=== PATIENT | female | born 1985 | race Caucasian/White ===

== ENCOUNTER 2016-10-03 23:18 | Emergency (ER) | payer OTHER ==
--- NOTE | ~2016-10-03 | CR72 ---
[facility] A Service of [facility] & [facility] RADIOLOGY TEXT RESULTS PATIENT: CARLTON WEINER LOCATION: [facility] : 89 UNIT #: [id number] AGE: [address]: Juju Low MD SEX: F ORDER DR: [id number] [facility] [address] [place], [place] [address] [id number] MR#: [id number] Acc #: [id number] NAME: CARLTON WEINER. : 1985 SEX: F STUDY DATE/TIME: 10/03/2016 23:24 UNIT: [facility] ROOM: STUDY DESCRIPTION: CR Chest Single View Portable Attending Physician: Juju Low M.D. Referring Physician: Self Referral-Refer Use Only Ordering Physician: Juju Low M.D. Primary Care Physician: No Primary Care Physician MEDICAL IMAGING REPORT This report is preliminary unless electronic signature is present EXAM Portable chest. HISTORY Cough and congestion x2 days. Smoker. COMPARISON 08/07/2015 FINDINGS Portable view of the chest demonstrates moderate lung volumes, satisfactory technique. No infiltrates or effusions. Heart, mediastinum, and great vessels unremarkable. Anchors are seen in the right anterior shoulder suggesting prior labral repair. No pneumothorax. Dictated by... Amanda Adams M.D. THIS IS AN ELECTRONICALLY VERIFIED REPORT Amanda Adams M.D. at 10/04/2016 10:06 PM TAMMY/graciela TD: 10/04/2016 10:51 JOB #: [id number] MEDICAL IMAGING REPORT Page 1 of 1 COPY
[~2016-10-03 23:18] MED LIST: ACETAMINOPHEN PO; ACYCLOVIR10 GM; ALBUTEROL17 GM INH; AMOXICILLIN500 M1 PO; AUGMENTIN875 M1 PO; BACTRIM DS TABL1 TA1 PO; BACTRIM DS TABL1 TA2 PO; BENTYL20 M1 PO; BIRTH CONTROL PILL PO; CIPRO PO; CIPRO250 MG PO; COLACE PO; DEPAKOTE ER250 MG PO; DEPAKOTE PO; DEPAKOTE125 MG; DICLOFENAC PO; DIFLUCAN PO; EFFEXOR75 MG PO; FLEXERIL PO; FLEXERIL10 MG PO; FORTAMET500 MG/BOT PO; HYDROCORTISONE RC; IBUPROFEN800 MG PO; KEFLEX250 M1 PO; KEFLEX500 M2 PO; KEFLEX500 MG PO; KLONOPIN0.5 MG PO; LEXAPRO PO; LEXAPRO20 MG PO; LIDOCAINE HC TOP; LISINOPRIL PO; LORTAB 10-5001 EACH PO; LORTAB 5/500 TA1 TA1 PO; LORTAB 7.5-5001 TAB PO; MACROBID100 MG DOB; MEDROL DOSEPAK4 MG PO; MOBIC PO; MOTRIN400 MG PO; MOTRIN600 M1 PO; NEURONTIN300 MG; NEURONTIN300 MG PO; NO MEDICATIONS; NUCYNTA50 MG PO; PEN-VEE K PO; PHENERGAN PO; PHENERGAN25 M1 PO; PHENERGAN25 MG PO; PREDNISONE PO; PRILOSEC20 MG PO; PRISTIQ100 MG PO; PRISTIQ50 MG; PROCTO RC; PROTONIX PO; PYRIDIUM PO; REQUIP2 MG PO; ROBAXIN500 MG PO; ROBITUSSIN COUG1 CAP PO; ROBITUSSIN PO; SEROQUEL; SEROQUEL PO; SEROQUEL XR200 MG; SEROQUEL300 M1 PO; SUBOXONE 8 MG-1 EACH SL; SYMBICORT INH; TEGRETOL PO; TORADOL10 MG PO; TYLENOL #3 PO; TYLOX 5/500 CAP1 CAP PO; VICODIN 5/1 TAB 5/50 PO; VICODIN 5/500 T1 TAB PO; VOLTAREN50 MG PO; VOLTAREN75 MG PO; YASMIN 28 TABLE1 TAB PO; ZESTRIL10 M1; ZOFRAN ODT4 MG/UDTAB PO; ZOFRAN8 MG PO; ZOFRANODT PO; ZOVIRAX800 MG PO; ZYRTEC PO
== END 2016-10-04 02:09 | disposition home or self-care (01) ==
LOC: CED 23:18
DX: J45.901 Unspecified asthma with (acute) exacerbation (principal); J20.9 Acute bronchitis, unspecified; I10 Essential (primary) hypertension; F17.210 Nicotine dependence, cigarettes, uncomplicated
CPT/HCPCS: 71010; 94640; 96365; 96375; 99284; J2930; J3475

== ENCOUNTER 2016-12-14 18:09 | Emergency (ER) | payer OTHER ==
[~2016-12-14] VITALS: Ht 165.1 cm; Wt 90.7 kg
[2016-12-14 18:57] LABS: BASOPHIL# 0.1 X10e3 (0-0.3); BASOPHIL% 0.8 % (0-2.5); EOSINOPHIL# 0.1 X10e3 (0-0.7); EOSINOPHIL% 1.4 % (0.0-7.0); LYMPHOCYTE# 3.9 X10e3 (1.0-3.5); LYMPHOCYTE% 42.4 % (17.0-45.0); MEAN CELL VOLUME 90.7 FL (83-96); MEAN CORPUSCULAR HEMOGLOBIN 29.4 PG (28-34); MEAN CORPUSCULAR HGB CONC 32.4 g/dL (30-36); MEAN PLATELET VOLUME 8.7 FL (6.5-11.5); MONOCYTE# 0.5 X10e3 (0-1.0); MONOCYTE% 5.2 % (3.0-12.0); NEUTROPHIL# 4.7 X10e3 (1.5-7.1); NEUTROPHIL% 50.2 % (40-75); PLATELET COUNT 227 X10e3 (140-420); RED BLOOD COUNT 4.41 X10e (3.90-5.30); RED CELL DISTRIBUTION WIDTH 14.4 % (11.0-15.5); WHITE BLOOD COUNT 9.3 X10e3 (4.0-10.5)
[2016-12-14 18:59] LABS: DIFF IND NO
[2016-12-14 19:22] LABS: ALBUMIN SERUM 3.9 g/dL (3.5-5.0); BILIRUBIN, DIRECT 0.1 mg/dL (0.0-0.2); BILIRUBIN,INDIRECT 0.6 mg/dL (0.0-0.9); BILIRUBIN,TOTAL 0.7 mg/dL (0.2-2.0); BUN/CREATININE RATIO 7.5; CALCIUM SERUM 8.5 mg/dL (8.4-10.2); CREATININE SERUM 0.8 mg/dL (0.6-1.4); GLOM FILT RATE Estimated 99.7 mL/min (>60); PROTEIN TOTAL SERUM 7.4 g/dL (6.0-8.3)
[2016-12-14 19:55] LABS: URINE SOURCE CLEAN CATCH
[2016-12-14 20:15] LABS: URINE APPEARANCE TURBID; URINE BILIRUBIN NEG (NEG); URINE BLOOD 3+ (NEG); URINE COLOR DK YELLOW; URINE GLUCOSE NEG (NEG); URINE KETONE NEG (NEG); URINE LEUKOCYTE ESTERASE NEG (NEG); URINE NITRATE NEG (NEG); URINE PROTEIN 1+ (NEG); URINE SPECIFIC GRAVITY 1.027 (1.003-1.035)
[2016-12-14 20:16] LABS: CULTURE INDICATED? YES; URBCS1 AUWI INNUM /[HPF] (0-2); URINE BACTERIA AUWI NEG (NEGATIVE); URINE SQUAMOUS EPITHELIAL CELL OCC /[HPF]
== END 2016-12-14 20:23 | disposition home or self-care (01) ==
LOC: CED 18:09
PROVIDERS: Emergency Medicine
DX: N92.0 Excessive and frequent menstruation with regular cycle (principal); E28.2 Polycystic ovarian syndrome; F17.200 Nicotine dependence, unspecified, uncomplicated
CPT/HCPCS: 36415; 80048; 80076; 81003; 83690; 84703; 85025; 86850; 86900; 86901; 87086; 99284

== ENCOUNTER 2017-01-08 | Inpatient (IN) | payer SELFPAY ==
[~2017-01-08] VITALS: Ht 165.1 cm; Wt 90.7 kg
--- NOTE | ~2017-01-08 | DS ---
Unit #: [id number] #: [id number] Patient: CARLTON WEINER [id number] [facility] [address] [place] [address] [id number] I MR#: [id number] NAME: CARLTON WEINER. ROOM: [facility] Age: 31 Sex: F Admission Date: 01/08/2017 : 1985 Discharge Date: 01/09/2017 Attending Physician: Danei Vee M.D. DISCHARGE SUMMARY REASON FOR ADMISSION Self-harm. DIAGNOSTIC STUDIES LABORATORY RESULTS: Unremarkable except urine drug screen positive for amphetamine and opiates. HOSPITAL COURSE The patient was admitted to inpatient unit on 01/08/2017 and discharged on 01/09/2017. The patient was treated with group therapy, individual therapy, and medication management. The patient was responsive to treatment. The patient denied any suicidal or homicidal ideation. Able to contract for safety. Subsequently, the patient was discharged with a plan to follow up in outpatient program. DISCHARGE MEDICATIONS Celexa 20 mg daily for depression, Desyrel 75 mg at bedtime for sleep, and Vistaril 25 mg t.i.d. for anxiety. DISCHARGE DIAGNOSES Psychiatric: Major depressive disorder, recurrent, severe, F33.2; amphetamine use disorder, severe, F15.20; opioid use disorder, severe, F11.20. Secondary diagnosis: Borderline personality disorder. Medical diagnosis: Obesity. Stressors: Psychosocial stressors. DISCHARGE INSTRUCTIONS The patient to follow up in outpatient clinic as per social service liaison. CONDITION ON DISCHARGE The patient was pleasant and cooperative. Denied any psychotic symptom or any suicidal ideation. PROGNOSIS Guarded. DIET AND ACTIVITY As tolerated. Unit #: [id number] #: [id number] Patient: CARLTON WEINER Dictated by... Cassie EpsteinC/deloris TD: 01/11/2017 11:06 JOB #: [id number] DISCHARGE SUMMARY Page 1 of 1 X Danie Vee MD X DISCHARGE SUMMARY
--- NOTE | ~2017-01-08 | HP ---
Unit #: [id number] #: [id number] Patient: CARLTON WEINER [id number] [place] [address] [id number] I MR#: [id number] NAME: CARLTON WEINER. ROOM: P254 Age: 31 Sex: F Admission Date: 01/08/2017 : 1985 Attending Physician: Danie Vee M.D. Admitting Physician: Danie Vee M.D. Primary Care Physician: Primary Care Physician No HISTORY AND PHYSICAL HISTORY OF PRESENT ILLNESS Carlton is a 31 year old admitted to [address] [place] [address] with depression and self-harming behavior. PAST MEDICAL HISTORY 1. History of self-harming. 2. Morbid obesity. 3. History of poly illicit substance abuse to include methamphetamine and pain pills. PAST SURGICAL HISTORY Nothing reported. ALLERGIES No known drug allergies. SOCIAL HISTORY Smokes one pack per day. Denies alcohol. Admits to a history of polysubstance abuse to include methamphetamine and pain pills. She tells me that she uses methamphetamine on a regular basis and abuses pain pills "periodically". FAMILY HISTORY Medically noncontributory. REVIEW OF SYSTEMS CONSTITUTIONAL: No fever or chills. HEENT: Denies any sore throat, ear pain or runny nose. CARDIOVASCULAR: Denies chest pain, irregular heart rhythm or palpitations. CHEST: Denies shortness of breath or cough. No hemoptysis. GASTROINTESTINAL: Denies nausea, vomiting, diarrhea or chronic constipation. ENDOCRINE: Denies history of increased thirst or urination. No recent significant weight loss or gain. GENITOURINARY: Denies dysuria, frequency, or hematuria. SKIN: Denies any rashes. HEMATOLOGIC: Denies history of increased bleeding or bruising. MUSCULOSKELETAL: Denies any hot, swollen joints. No generalized muscle pain. NEUROLOGIC: Denies problems with vision or speech. No frequent, severe headaches. No numbness, tingling or weakness in any extremities. Denies loss of bladder or bowel control. Unit #: [id number] #: [id number] Patient: CARLTON WEINER CURRENT MEDICATIONS 1. Trazodone 75 mg q.h.s. 2. Celexa 20 mg q day 3. Vistaril 25 mg t.i.d. 4. Nicotine patch 21 mg q day 5. Milk of Magnesia p.r.n. 6. Maalox p.r.n. 7. Tylenol p.r.n. PHYSICAL EXAMINATION GENERAL: Alert, well-nourished, in no apparent distress. VITAL SIGNS: Blood pressure 130/70, heart rate 80, respirations 16, temperature 98.6. WEIGHT: 200. HEIGHT: 5 foot 5 inches. SKIN: Warm and dry. She has multiple sores on her face and arms. There is no increased redness, swelling, heat or pus noted. She also has numerous small cuts on her left anterior forearm and legs. Again there is no increased redness or pus noted. HEENT: Normocephalic. TMs not viewed. Oral and nasal passages clear. Conjunctivae clear. Pupils equal, round and reactive to light and accommodation. Extraocular movements intact. NECK: Supple without lymphadenopathy or thyromegaly. HEART: Regular rate and rhythm without murmur. LUNGS: Clear. ABDOMEN: Soft, nontender. : Not done. EXTREMITIES: No evidence of cyanosis, clubbing or edema. Moves all extremities without focal deficit. NEUROLOGICAL: Grossly within normal limits. Cranial Nerves: II: Visual brower are intact. III, IV AND : Extraocular movements are intact. Pupils are equal, round and reactive to light. V: Facial sensation is grossly normal. VII: Facial movements and expression are normal. VIII: Auditory acuity grossly intact. IX, X: Uvula is midline. Phonation is normal. XI: Patient shrugs shoulders and turns head normally. XII: Tongue protrudes in the midline. Sensory and Motor Function: Sensory and motor sensation is grossly normal. Motor: moves all extremities well. Coordination: Gait is normal. Deep Tendon Reflexes: Intact. IMPRESSION 1. Psychiatric admission. 2. History of illicit substance abuse to include meth. 3. Meth "sores" on her face and arms. 4. Self-inflicted cuts sustained prior to this admission. RECOMMENDATIONS PSYCHIATRIC: Per psychiatrist. MEDICAL: 1. I see no contraindications to participating in facility's activities. 2. Keep the areas clean with soap and water. No further Rx. MEDICAL PROGNOSIS Good. Unit #: [id number] #: [id number] Patient: CARLTON WEINER MEDICAL CONDITION Stable. Dictated by... Cookie Gil P.A.-C. for Cassie Ayers/alysa TD: 01/08/2017 21:46 JOB #: [id number] HISTORY AND PHYSICAL Page 1 of 1 X Cookie Gil X HISTORY AND PHYSICAL
--- NOTE | ~2017-01-08 | PA ---
Unit #: [id number] #: [id number] Patient: CARLTON WEINER [id number] [place] [address] [id number] MR#: [id number] NAME: CARLTON WEINER. ROOM: P254 Age: 31 Sex: F Admission Date: 01/08/2017 : 1985 Date of Assessment: 01/08/2017 Attending Physician: Danie Vee M.D. Admitting Physician: Danie Vee M.D. Primary Care Physician: Primary Care Physician No PSYCHIATRIC ASSESSMENT INFORMANT The patient reliability, fair; chart reliability, good. CHIEF COMPLAINT Suicidal ideation and self-harm. HISTORY OF PRESENT ILLNESS Ms. Carlton Weiner is a 31-year-old female, presented with the above-mentioned complaint with multiple cuts on her left arm. The patient reported feeling sad and depressed. The patient also had multiple seals on her face and reported that she has been anxious and picking on her skin. The patient reported suicidal ideation, but denied any homicidal ideation. History of self-harming behavior. The patient reported history of mental illness and substance abuse in father and brother. The patient reported tobacco use, age of onset 27. No use of any drugs or alcohol. The patient needing inpatient admission at this time for psychiatric stabilization. PAST PSYCHIATRIC HISTORY Remarkable for history of outpatient treatment, inpatient IOP multiple times. Last treated in 09/2012, diagnosed with bipolar disorder, borderline personality disorder. FAMILY HISTORY AND SOCIAL HISTORY Please see above. Poor support system. No history of abuse. No legal charges. MEDICAL HISTORY Remarkable for history of multiple cuts on her arms. No chronic medical illness. Obesity. MEDICATION HISTORY None. ALLERGIES No known drug allergies. SUBSTANCE ABUSE HISTORY None. REVIEW OF SYSTEMS HEENT: Eyes, clear. Ears, nose, mouth, and throat; clear. CARDIOVASCULAR: Unremarkable. Unit #: [id number] #: [id number] Patient: CARLTON WEINER RESPIRATORY: Unremarkable. GI: Unremarkable. : Unremarkable. SKIN: Unremarkable. LYMPH NODE: Unremarkable. NEUROLOGIC: Unremarkable. ENDOCRINE: Unremarkable. HEMATOLOGIC: Unremarkable. ALLERGIC/IMMUNOLOGIC: Unremarkable. MUSCULOSKELETAL: Muscle strength and tone, no atrophy or abnormal movement. Gait normal. MENTAL STATUS EXAMINATION CONSTITUTIONAL: Measurement of vital signs; temperature 98.0, pulse 110, respirations 18, oxygen saturation 100%, blood pressure 127/88, height 5 feet 5 inches, and weight 200 pounds. GENERAL APPEARANCE: The patient dressed casually. No facial deformity noted. MUSCULOSKELETAL: Please see above. PSYCHIATRIC EXAMINATION Description of speech; regular rate, normal volume, normal articulation, coherent. Description of thought process, goal directed. Description of association, intact. Description of abnormal psychotic thinking; the patient denied any hallucination or delusions, but sad and dysphoric, flat affect, guarded. Reported having suicidal ideation, self-harm. Description of the patient's judgment, concerning everyday activity, poor. Social situation, poor. Concerning psychiatric condition, poor. Complete mental status examination; oriented in time, place, and person. Recent and remote memory, fair. Attention span and concentration, fair. Language, intact. Fund of knowledge, fair. Vocabulary, intact. Mood and affect, sad and dysphoric. Insight and judgment, fair to poor. ASSETS AND LIABILITIES Assets; the patient is articulate, able to take care of her ADL. Liability; history of depression. ADMITTING DIAGNOSES Psychiatric: Major depressive disorder, recurrent, severe; F33.2; rule out bipolar mood disorder. Secondary diagnosis: Borderline personality disorder. Medical diagnosis: History of obesity. Stressors: Psychosocial stressors. PSYCHIATRIC PLAN AND TREATMENT GOAL AND DISCHARGE PLAN 1. Advised to admit the patient on the inpatient unit. Provide safe, supportive, and structured environment. 2. Ordered labs; CBC, CMP, UA, UDS, test. 3. Precaution for self-harm, VTS monitoring. 4. The patient to attend all the programming group therapy, individual therapy, and medication management. 5. Treatment goal; to attain euthymic mood, gain insight into her problem, and learn coping skills. Plan to consider medication such as Vistaril for anxiety, Celexa for depression, and trazodone for sleep. Unit #: [id number] #: [id number] Patient: CARLTON WEINER 6. Discharge plan; plan to stabilize the patient and consider followup in outpatient program. ESTIMATED LENGTH OF STAY 3 to 5 days. Dictated by... Danie Vee M.D. SHILA/deloris TD: 01/08/2017 18:31 JOB #: [id number] PSYCHIATRIC ASSESSMENT Page 1 of 1 X Danie Vee MD PSYCHIATRIC ASSESSMENT
[2017-01-08 09:48] LABS: BASOPHIL# 0.1 X10e3 (0-0.3); BASOPHIL% 0.7 % (0-2.5); EOSINOPHIL# 0.3 X10e3 (0-0.7); EOSINOPHIL% 2.8 % (0.0-7.0); HEMATOCRIT 39.1 % (35.0-45.0); HEMOGLOBIN 13.2 gm/dL (12.0-16.0); LYMPHOCYTE# 4.2 X10e3 (1.0-3.5); LYMPHOCYTE% 45.4 % (17.0-45.0); MEAN CELL VOLUME 89.7 FL (83-96); MEAN CORPUSCULAR HEMOGLOBIN 30.2 PG (28-34); MEAN CORPUSCULAR HGB CONC 33.6 g/dL (30-36); MEAN PLATELET VOLUME 9.6 FL (6.5-11.5); MONOCYTE# 1.1 X10e3 (0-1.0); MONOCYTE% 12.2 % (3.0-12.0); NEUTROPHIL# 3.6 X10e3 (1.5-7.1); NEUTROPHIL% 38.9 % (40-75); PLATELET COUNT 253 X10e3 (140-420); RED BLOOD COUNT 4.36 X10e (3.90-5.30); WHITE BLOOD COUNT 9.2 X10e3 (4.0-10.5)
[2017-01-08 09:58] LABS: ALBUMIN SERUM 3.4 g/dL (3.5-5.0); BILIRUBIN,TOTAL 0.5 mg/dL (0.2-2.0); BUN/CREATININE RATIO 17.14; CREATININE SERUM 0.7 mg/dL (0.6-1.4); DIFF IND NO; GLOM FILT RATE Estimated 117.1 mL/min (>60); POTASSIUM 4.2 mmol/L (3.5-5.1); PROTEIN TOTAL SERUM 6.2 g/dL (6.0-8.3)
[2017-01-08 10:18] LABS: URINE APPEARANCE TURBID; URINE BLOOD NEG (NEG); URINE COLOR DK YELLOW; URINE GLUCOSE NEG (NEG); URINE KETONE NEG (NEG); URINE LEUKOCYTE ESTERASE NEG (NEG); URINE NITRATE NEG (NEG); URINE PROTEIN TRACE (NEG); URINE SPECIFIC GRAVITY 1.028 (1.003-1.035)
[2017-01-08 10:26] LABS: URINE BILIRUBIN NEG (NEG)
[2017-01-08 10:38] LABS: AMPHETAMINE POS (NEG); BARBITURATES NEG (NEG); BENZODIAZEPINES NEG (NEG); COCAINE NEG (NEG); MARIJUANA NEG (NEG); OPIATES POS (NEG); TRICYCLIC ANTIDEPRESSANTS NEG (NEG); U METHADONE NEG (NEG)
== END 2017-01-09 14:41 | disposition home or self-care (01) | DRG 885 ==
LOC: P2L 02:28
PROVIDERS: Psychiatry & Neurology Psychiatry
DX: F33.2 Major depressive disorder, recurrent severe without psychotic features (principal); R45.851 Suicidal ideations; F11.20 Opioid dependence, uncomplicated; F15.20 Other stimulant dependence, uncomplicated; E66.01 Morbid (severe) obesity due to excess calories; F17.210 Nicotine dependence, cigarettes, uncomplicated; F60.3 Borderline personality disorder
CPT/HCPCS: 80053; 80307; 81003; 84703; 85025

== ENCOUNTER 2017-01-11 16:19 | Emergency (ER) | payer SELFPAY | END 2017-01-11 16:29 | disposition left against medical advice (07) | LOC: SED 16:19 | DX: Z53.21 Procedure and treatment not carried out due to patient leaving prior to being seen by health care provider (principal) ==